=== PATIENT | male | born 1990 | race Caucasian/White ===

== ENCOUNTER 2017-08-13 06:26 | Emergency (ER) | payer SELFPAY ==
--- NOTE | 2017-08-13 06:53 | Emergency Department Record ---
History of Present Illness - General Chief Complaint: Laceration(s) Stated Complaint: LACERATION Time Seen by Provider: 08/13/17 06:43 Source: Patient Mode of Arrival: Ambulatory Limitations: No limitations - History of Present Illness Initial Commments: pt gouged r middle finger on a bark grinder at [facility]. Onset/Timin -: Minutes(s) Extremity Location: Right: Hand Place: Work Context: Accidental Associated Symptoms: None Treatments Prior to Arrival: Bandage - [place] Coma Scale Eye Response: (4) Open spontaneously Motor Response: (6) Obeys commands Verbal Response: (5) Oriented [place] Total: 15 - Related Data Hx Tetanus Toxoid Vaccination: Yes Patient Tetanus UTD (within 5 yrs): Yes Home Medications Medication Instructions Recorded Confirmed Last Taken No Home Med [NO HOME MEDS] 08/13/17 08/13/17 Unknown Allergies Allergy/AdvReac Type Severity Reaction Status Date / Time No Known Drug Allergies Allergy Verified 08/13/17 06:29 Travel Screening - Travel/Exposure Within Last 30 Days Have you traveled within the last 30 days?: No Review of Systems Reviewed: No additional complaints except as noted below Constitutional: Reports: As per HPI. Denies: Chills, Fever, Malaise, Night sweats, Weakness, Weight change Eyes: Reports: As per HPI. Denies: Eye discharge, Eye pain, Photophobia, Vision change ENT: Reports: As per HPI. Denies: Congestion, Dental pain, Ear pain, Epistaxis , Hearing loss, Throat pain Respiratory: Reports: As per HPI. Denies: Cough, Dyspnea, Hemoptysis, Stridor, Wheezes Cardiovascular: Reports: As per HPI. Denies: Arrhythmia, Chest pain, Dyspnea on exertion, Edema, Murmurs, Orthopnea, Palpitations, Paroxysmal nocturnal dyspnea, Rheumatic Fever, Syncope Endocrine: Reports: As per HPI. Denies: Fatigue, Heat or cold intolerance, Polydipsia, Polyuria Gastrointestinal: Reports: As per HPI. Denies: Abdominal pain, Constipation, Diarrhea, Hematemesis, Hematochezia, Melena, Nausea, Vomiting Genitourinary: Reports: As per HPI. Denies: Dysuria, Frequency, Hematuria, Incontinence, Retention, Testicular pain, Testicular mass, Urgency Musculoskeletal: Reports: As per HPI. Denies: Arthralgia, Back pain, Gout, Joint swelling, Myalgia, Neck pain Skin: Reports: As per HPI. Denies: Bruising, Change in color, Change in hair/ nails, Lesions, Pruritus, Rash Neurological: Reports: As per HPI. Denies: Abnormal gait, Confusion, Headache, Numbness, Paresthesias, Seizure, Tingling, Tremors, Vertigo, Weakness Psychiatric: Reports: As per HPI. Denies: Anxiety, Auditory hallucinations, Depression, Homicidal thoughts, Suicidal thoughts, Visual hallucinations Hematological/Lymphatic: Reports: As per HPI. Denies: Anemia, Blood Clots, Easy bleeding, Easy bruising, Swollen glands Past Medical History - SOCIAL HISTORY Smoking Status: Heavy tobacco smoker (>10/day) Alcohol Use: None Drug Use: None - RESPIRATORY Hx Respiratory Disorders: No - CARDIOVASCULAR Hx Cardio Disorders: Yes Comment:: hypotension - NEURO Hx Neuro Disorders: No - GI Hx GI Disorders: Yes Hx GI Bleed: Yes - Hx Genitourinary Disorders: No - ENDOCRINE Hx Endocrine Disorders: No - MUSCULOSKELETAL Hx Musculoskeletal Disorders: No - PSYCH Hx Psych Problems: No - HEMATOLOGY/ONCOLOGY Hx Hematology/Oncology Disorders: No Family Medical History Any Significant Family History?: No Physical Exam - General General Appearance: Alert, Oriented x3, Cooperative, No acute distress - Head Head exam: Normal inspection - Eye Eye exam: Normal appearance, PERRL, EOMI Pupils: Normal accommodation - ENT ENT exam: Normal exam, Mucous membranes moist, Normal external ear exam, Normal orophraynx Ear exam: Normal external inspection. negative: External canal tenderness Nasal Exam: Normal inspection. negative: Discharge, Sinus tenderness Mouth exam: Normal external inspection, Tongue normal Teeth exam: Normal inspection. negative: Dental caries Throat exam: Normal inspection. negative: Tonsillar erythema, Tonsillar exudate - Neck Neck exam: Normal inspection, Full ROM. negative: Tenderness - Respiratory Respiratory exam: Normal lung sounds bilaterally. negative: Respiratory distress - Cardiovascular Cardiovascular Exam: Regular rate, Normal rhythm, Normal heart sounds - GI/Abdominal GI/Abdominal exam: Soft, Normal bowel sounds. negative: Tenderness - Rectal Rectal exam: Deferred - exam: Deferred - Extremities Extremities exam: Normal inspection, Full ROM, Normal capillary refill. negative: Tenderness Image of Finger Tip: 1 - triangular wedge of missing tissue - Back Back exam: Reports: Normal inspection, Full ROM. Denies: Muscle spasm, Rash noted, Tenderness - Neurological Neurological exam: Alert, CN II-XII intact, Normal gait, Oriented X3 - Psychiatric Psychiatric exam: Normal affect, Normal mood - Skin Skin exam: Dry, Intact, Normal color, Warm Course Vital Signs 08/13/17 06:29 Temperature 97.6 F Pulse Rate [ 84 Pulse Ox Probe] Respiratory 18 Rate Blood Pressure 129/87 [Left Arm] Pulse Ox 98 - Reevaluation(s) Reevaluation #1: 08/13/17 06:[address] duffy Disposition Disposition: Discharge Clinical Impression: Laceration of finger of right hand with complication Qualifiers: Encounter type: initial encounter Qualified Code(s): S61.411A - Laceration without foreign body of right hand, initial encounter Disposition: Home, Self-Care Condition: (1) Good Instructions: Laceration (ED) Quality - Quality Measures Quality Measures: N/A - Blood Pressure Screening Does Patient Have Any of the Following: No Blood Pressure Classification: Pre-Hypertensive BP Reading Systolic Measurement: 129 Diastolic Measurement: 87 Screening for High Blood Pressure: < Pre-Hypertensive BP, F/U Documented > [ G8950] Pre-Hypertensive Follow-up Interventions: Follow-up with rescreen every year.
[2017-08-13] MEDS ORDERED: CEPHALEXIN 500 MG CAPSULE PO STA (07:34)
--- NOTE | 2017-08-13 07:48 | Emergency Department Record ---
History of Present Illness - General Chief Complaint: Laceration(s) Stated Complaint: LACERATION Time Seen by Provider: 08/13/17 06:43 Source: Patient Mode of Arrival: Ambulatory Limitations: No limitations - History of Present Illness Initial Commments: The patient is here due to injuring his R 3rd finger at work this AM. He had a grinder and plater take out a piece of the dorsal lateral edge of his finger. There is no nail involvement. His Td is UTD. Onset/Timin -: Minutes(s) Extremity Location: Right: Hand Place: Work Context: Accidental Associated Symptoms: None Treatments Prior to Arrival: Bandage - [place] Coma Scale Eye Response: (4) Open spontaneously Motor Response: (6) Obeys commands Verbal Response: (5) Oriented [place] Total: 15 - Related Data Hx Tetanus Toxoid Vaccination: Yes Patient Tetanus UTD (within 5 yrs): Yes Previous Rx's Medication Instructions Recorded Cephalexin [Keflex] 500 mg PO QID #28 cap 08/13/17 Allergies Allergy/AdvReac Type Severity Reaction Status Date / Time No Known Drug Allergies Allergy Verified 08/13/17 06:29 Travel Screening - Travel/Exposure Within Last 30 Days Have you traveled within the last 30 days?: No Review of Systems Constitutional: Reports: As per HPI. Denies: Chills, Fever, Malaise, Night sweats, Weakness, Weight change Eyes: Reports: As per HPI. Denies: Eye discharge, Eye pain, Photophobia, Vision change ENT: Reports: As per HPI. Denies: Congestion, Dental pain, Ear pain, Epistaxis , Hearing loss, Throat pain Respiratory: Reports: As per HPI. Denies: Cough, Dyspnea, Hemoptysis, Stridor, Wheezes Cardiovascular: Reports: As per HPI. Denies: Arrhythmia, Chest pain, Dyspnea on exertion, Edema, Murmurs, Orthopnea, Palpitations, Paroxysmal nocturnal dyspnea, Rheumatic Fever, Syncope Endocrine: Reports: As per HPI. Denies: Fatigue, Heat or cold intolerance, Polydipsia, Polyuria Gastrointestinal: Reports: As per HPI. Denies: Abdominal pain, Constipation, Diarrhea, Hematemesis, Hematochezia, Melena, Nausea, Vomiting Genitourinary: Reports: As per HPI. Denies: Dysuria, Frequency, Hematuria, Incontinence, Retention, Testicular pain, Testicular mass, Urgency Musculoskeletal: Reports: As per HPI. Denies: Arthralgia, Back pain, Gout, Joint swelling, Myalgia, Neck pain Skin: Reports: As per HPI. Denies: Bruising, Change in color, Change in hair/ nails, Lesions, Pruritus, Rash Neurological: Reports: As per HPI. Denies: Abnormal gait, Confusion, Headache, Numbness, Paresthesias, Seizure, Tingling, Tremors, Vertigo, Weakness Psychiatric: Reports: As per HPI. Denies: Anxiety, Auditory hallucinations, Depression, Homicidal thoughts, Suicidal thoughts, Visual hallucinations Hematological/Lymphatic: Reports: As per HPI. Denies: Anemia, Blood Clots, Easy bleeding, Easy bruising, Swollen glands Past Medical History - SOCIAL HISTORY Smoking Status: Heavy tobacco smoker (>10/day) Alcohol Use: None Drug Use: None - RESPIRATORY Hx Respiratory Disorders: No - CARDIOVASCULAR Hx Cardio Disorders: Yes Comment:: hypotension - NEURO Hx Neuro Disorders: No - GI Hx GI Disorders: Yes Hx GI Bleed: Yes - Hx Genitourinary Disorders: No - ENDOCRINE Hx Endocrine Disorders: No - MUSCULOSKELETAL Hx Musculoskeletal Disorders: No - PSYCH Hx Psych Problems: No - HEMATOLOGY/ONCOLOGY Hx Hematology/Oncology Disorders: No Family Medical History Any Significant Family History?: No Physical Exam - General General Appearance: Alert, Cooperative Limitations: No limitations - Extremities Extremities exam: Full ROM (There is no pain with DIP joint flexion or extension.), Tenderness. negative: Normal inspection (There is a wedge of skin avulsed from the distal dorsal finger next to the nail of the R 3rd finger. There is nothing to suture and no tendon is visible.) Course Vital Signs 08/13/17 06:29 Temperature 97.6 F Pulse Rate [ 84 Pulse Ox Probe] Respiratory 18 Rate Blood Pressure 129/87 [Left Arm] Pulse Ox 98 - Reevaluation(s) Reevaluation #1: The R 3rd finger wound was cleansed with Hibiclens and then scrubbed with betadine and sterile saline. There was no tendon visible in the wound. The wound was then dressed with Abx ointment and tube gauze. 08/13/17 07:46 Medical Decision Making - Data Complexity MDM Data: X-Ray Ordered and/or Reviewed - Radiology Data Radiology results: Report reviewed (R 3rd finger: Neg for any bony abnormality.) Disposition Clinical Impression: Laceration of finger of right hand with complication Qualifiers: Encounter type: initial encounter Qualified Code(s): S61.411A - Laceration without foreign body of right hand, initial encounter Disposition: Home, Self-Care Condition: (1) Good Instructions: Laceration (ED) Additional Instructions: Please take the Keflex as directed and use Tylenol or Motrin for pain. Please return to the ER on Wednesday for a wound recheck and make an appointment with Dr. Quintana for early next week. Prescriptions: Cephalexin [Keflex] 500 mg PO QID #28 cap Referrals: LIONEL QUINTANA M.D. [MEDICAL DOCTOR] - Forms: Patient Portal Access Time of Disposition: 07:48 Quality - Quality Measures Quality Measures: N/A - Blood Pressure Screening View Details: Yes Does Patient Have Any of the Following: No Blood Pressure Classification: Normal BP Reading Systolic Measurement: 118 Diastolic Measurement: 65 Screening for High Blood Pressure: < Normal BP, F/U Not Required > [G8783]
--- NOTE | 2017-08-13 10:57 | RADIOLOGY REPORT ---
EXAM: RIGHT HAND, THREE VIEWS HISTORY: INJURED RIGHT DISTAL THIRD FINGER ON A BLOOD DONOR RECRUITER THIS MORNING, LACERATION DISTAL PHALANX RIGHT THIRD DIGIT. TECHNIQUE: Three views of the right hand were obtained. Comparison: None. Encounter: Initial. FINDINGS: Soft tissue defect adjacent to the right third digital phalanx. No fracture. There is a thin minimally hyperdense structure dorsal to the DIP on the lateral view measuring 2 mm in length as well as scattered punctate radiodensities at the ulnar aspect of the third distal phalanx. IMPRESSION: SOFT TISSUE DEFECT NEAR THE RIGHT THIRD DISTAL PHALANX WITH NO FRACTURE LINE IDENTIFIED. PUNCTATE AND LINEAR RADIODENSITIES AT THE DORSAL AND ULNAR ASPECTS OF THE RIGHT THIRD DISTAL PHALANX COULD RELATE TO TINY FOREIGN BODIES OR SOFT TISSUE MINERALIZATION. JOB NUMBER: [id number] [facility]
== END 2017-08-13 07:55 | disposition home or self-care (01) ==
LOC: ER 06:26
DX: S61.212A Laceration without foreign body of right middle finger without damage to nail, initial encounter (principal); W31.89XA Contact with other specified machinery, initial encounter; Y92.63 Factory as the place of occurrence of the external cause; Y99.0 Civilian activity done for income or pay
CPT/HCPCS: 99283; 99284

== ENCOUNTER 2017-08-15 12:42 | Emergency (ER) | payer SELFPAY ==
--- NOTE | 2017-08-15 12:54 | Emergency Department Record ---
History of Present Illness - General Chief Complaint: Wound, check Stated Complaint: WOUND RECHECK Time Seen by Provider: 08/15/17 12:45 Source: Patient Mode of arrival: Ambulatory Limitations: No limitations - History of Present Illness Initial Comments: 26 yo male presents for a wound recheck. He was seen on 08/13. He injured his finger with a fiberglass grinder. He was referred to hand surgery and asked to return for a recheck. The patient denies uncontrolled pain, fever, pus or any new concerns. He is taking Keflex. Dr Dave referred the patient to hand surgery for outpatient follow up. MD Complaint: Wound re-check - Related Data Previous Rx's Medication Instructions Recorded Cephalexin [Keflex] 500 mg PO QID #28 cap 08/13/17 Hydrocodone/Acetaminophen [[place] 1 each PO TID #10 tablet 08/15/17 5-325 Tablet] Allergies Allergy/AdvReac Type Severity Reaction Status Date / Time No Known Drug Allergies Allergy Verified 08/15/17 12:50 Review of Systems Constitutional: Denies: Chills, Fever, Malaise Eyes: Denies: Eye pain ENT: Denies: Congestion Respiratory: Denies: Cough Cardiovascular: Denies: Chest pain Endocrine: Denies: Fatigue Gastrointestinal: Denies: Diarrhea, Nausea, Vomiting Musculoskeletal: Reports: As per HPI, Arthralgia Skin: Reports: As per HPI, Other (laceration) Neurological: Denies: Headache Psychiatric: Denies: Anxiety Hematological/Lymphatic: Denies: Blood Clots, Easy bleeding, Easy bruising, Swollen glands Past Medical History - SOCIAL HISTORY Smoking Status: Heavy tobacco smoker (>10/day) Drug Use: None - RESPIRATORY Hx Respiratory Disorders: No - CARDIOVASCULAR Hx Cardio Disorders: Yes Comment:: hypotension - NEURO Hx Neuro Disorders: No - GI Hx GI Disorders: Yes Hx GI Bleed: Yes - Hx Genitourinary Disorders: No - ENDOCRINE Hx Endocrine Disorders: No - MUSCULOSKELETAL Hx Musculoskeletal Disorders: No - PSYCH Hx Psych Problems: No - HEMATOLOGY/ONCOLOGY Hx Hematology/Oncology Disorders: No Physical Exam - General General Appearance: Alert, Oriented x3, Cooperative, No acute distress Limitations: No limitations - Head Head exam: Atraumatic, Normal inspection - Eye Eye exam: Normal appearance - ENT ENT exam: Normal exam Nasal Exam: Normal inspection - Neck Neck exam: Normal inspection - Cardiovascular Peripheral Pulses: 2+: Radial (R) - Extremities Extremities exam: negative: Normal inspection Image of Finger Tip: 1 - avulsed tissue, no pus, no erythema, no signs of secondary infection, flexion and extension are intact - Neurological Neurological exam: Alert, Normal gait, Oriented X3 - Psychiatric Psychiatric exam: Normal affect, Normal mood - Skin Skin exam: Other (avulsion of finger tissue, intact nail) Course - Reevaluation(s) Reevaluation #1: The wound was rechecked. No signs of infection. The wound was redressed. He will call hand surgery tomorrow for outpatient follow up 08/15/17 12:55 Disposition Disposition: Discharge Clinical Impression: Laceration of finger of right hand with complication, Visit for wound check Disposition: Home, Self-Care Condition: (1) Good Instructions: Laceration (ED) Additional Instructions: Call the number provided for follow up with hand surgery REturn if you have redness, pain, pus or any new concerns Continue your Keflex as directed. Prescriptions: Hydrocodone/Acetaminophen [[place] 5-325 Tablet] 1 each PO TID #10 tablet Time of Disposition: 12:49 Quality - Quality Measures Quality Measures: N/A - Blood Pressure Screening Does Patient Have Any of the Following: No Systolic Measurement: ~ Screening for High Blood Pressure: < Normal BP, F/U Not Required > [G8783]
== END 2017-08-15 13:08 | disposition home or self-care (01) ==
LOC: ER 12:42
DX: S61.212A Laceration without foreign body of right middle finger without damage to nail, initial encounter (principal); W31.89XA Contact with other specified machinery, initial encounter; Y92.63 Factory as the place of occurrence of the external cause; Y99.0 Civilian activity done for income or pay
CPT/HCPCS: 99282

== ENCOUNTER 2017-08-22 17:15 | Emergency (ER) | payer SELFPAY ==
--- NOTE | 2017-08-22 17:33 | Emergency Department Record ---
History of Present Illness - General Chief complaint: Extremity Problem Stated complaint: RT HAND FINGER WOUND/SWOLLEN/PAIN/WHITE Time Seen by Provider: 08/22/17 17:26 Source: Patient Mode of Arrival: Ambulatory Limitations: No limitations - History of Present Illness Initial comments: 26 yo male presents for a recheck of his finger. The patient injured his finger with a backside grinder about 1.5 weeks ago at work. He was seen in the ED initially. He was referred to hand Surgery in [place]. He did not follow up there but he was able to get an appointment in [place] with Dr Downs. He was seen on Wednesday. He was told the area will heal over on its own. The area has continued to have some surface drainage and remains tender at the cuticle. No streaking erythema. No sarah pus. He continues to work. It is a dirty environment. He is trying to keep it as clean as feasible. MD Complaint: Extremity pain -: Week(s) Radiation: Distal Consistency: Constant Improves with: Nothing Worsens with: Palpation, Weight bearing Associated Symptoms: Denies other symptoms - Related Data Previous Rx's Medication Instructions Recorded Cephalexin [Keflex] 500 mg PO QID #28 cap 08/13/17 Clindamycin HCl 300 mg PO TID #21 capsule 08/22/17 Hydrocodone/Acetaminophen [[place] 1 each PO Q8H #15 tablet 08/22/17 5-325 Tablet] Allergies Allergy/AdvReac Type Severity Reaction Status Date / Time No Known Drug Allergies Allergy Verified 08/22/17 17:20 Review of Systems Constitutional: Denies: Chills, Fever, Malaise, Weakness Eyes: Denies: Eye discharge ENT: Denies: Congestion, Throat pain Respiratory: Denies: Cough Cardiovascular: Denies: Chest pain Endocrine: Denies: Fatigue Gastrointestinal: Denies: Abdominal pain, Diarrhea, Nausea, Vomiting Musculoskeletal: Reports: As per HPI, Arthralgia Skin: Denies: Bruising, Change in color, Pruritus Neurological: Denies: Headache Psychiatric: Denies: Anxiety Past Medical History - SOCIAL HISTORY Smoking Status: Heavy tobacco smoker (>10/day) Drug Use: None - RESPIRATORY Hx Respiratory Disorders: No - CARDIOVASCULAR Hx Cardio Disorders: Yes Comment:: hypotension - NEURO Hx Neuro Disorders: No - GI Hx GI Disorders: Yes Hx GI Bleed: Yes - Hx Genitourinary Disorders: No - ENDOCRINE Hx Endocrine Disorders: No - MUSCULOSKELETAL Hx Musculoskeletal Disorders: No - PSYCH Hx Psych Problems: No - HEMATOLOGY/ONCOLOGY Hx Hematology/Oncology Disorders: No Physical Exam - General General Appearance: Alert, Oriented x3, Cooperative, No acute distress Limitations: No limitations - Head Head exam: Normal inspection - Eye Eye exam: Normal appearance. negative: Conjunctival injection - ENT ENT exam: Normal exam Ear exam: Normal external inspection Nasal Exam: Normal inspection - Neck Neck exam: Normal inspection - Extremities Extremities exam: negative: Normal inspection Image of Finger Tip: 1 - healing defect of avulsed tissue, no pus, no erythema, he has mild swelling , no abnormal warmth. Compared to prior exam some healing by secondary intension is occuring - Neurological Neurological exam: Alert, Oriented X3 - Psychiatric Psychiatric exam: Normal affect, Normal mood - Skin Skin exam: negative: Erythema Course - Reevaluation(s) Reevaluation #1: The area at this time does appear to healing by secondary intention No pus was expressed No erythema present We discussed improved protection at work since he works in a dirty environment I will continue antibiotics until he can followup with his hand surgeon for a recheck 08/22/17 17:41 Disposition Disposition: Discharge Clinical Impression: Visit for wound check Disposition: Home, Self-Care Condition: (1) Good Instructions: Chronic Wound Care (ED) Additional Instructions: Call your hand surgeon tomorrow for a recheck again this week Go to an ER or return if you have any fever, pus, or redness Prescriptions: Clindamycin HCl 300 mg PO TID #21 capsule Hydrocodone/Acetaminophen [[place] 5-325 Tablet] 1 each PO Q8H #15 tablet Forms: Patient Portal Access Time of Disposition: 17:43 Quality - Quality Measures Quality Measures: N/A - Blood Pressure Screening Does Patient Have Any of the Following: No Blood Pressure Classification: Pre-Hypertensive BP Reading Systolic Measurement: 128 Diastolic Measurement: 76 Screening for High Blood Pressure: < Pre-Hypertensive BP, F/U Documented > [ G8950] Pre-Hypertensive Follow-up Interventions: Referral to alternative/primary care provider.
[2017-08-22] MEDS ORDERED: HYDROCODONE/APAP 5/325MG TABLET PO ONE (17:34)
[2017-08-22] MEDS ORDERED: CLINDAMYCIN 150 MG CAP PO ONE (17:34)
== END 2017-08-22 18:00 | disposition home or self-care (01) ==
LOC: ER 17:15
DX: S61.212A Laceration without foreign body of right middle finger without damage to nail, initial encounter (principal); W31.89XA Contact with other specified machinery, initial encounter; Y92.63 Factory as the place of occurrence of the external cause; Y99.0 Civilian activity done for income or pay
CPT/HCPCS: 99282